=== PATIENT | female | born 1990 | race Caucasian/White ===

== ENCOUNTER 2018-04-07 21:01 | Outpatient (CLI) | payer MEDICAID ==
[2009-10-23 12:07] VITALS: BMI 31.9
[2018-04-07 21:44] LABS: APPEARANCE HAZY (CLEAR); BACTERIA MODERATE /hpf (NONE SEEN); BILIRUBIN NEGATIVE (NEGATIVE); COLOR YELLOW (YELLOW); EPITHELIAL CELLS NSEEN /hpf (0-5); GLUCOSE NEGATIVE (NEGATIVE); KETONE NEGATIVE (NEGATIVE); NITRITE NEGATIVE (NEGATIVE); PROTEIN NEGATIVE (NEGATIVE); RED CELLS - URINE 0-5 /hpf (0-5); SPECIFIC GRAVITY 1.015 (1.005-1.020); UROBILINOGEN NORMAL (NORMAL); WHITE CELLS - URINE 25-50 /hpf (0-5)
== END 2018-04-07 22:08 | disposition home or self-care (01) ==
LOC: D.LDO 21:01
PROVIDERS: Obstetrics & Gynecology
DX: O26.892 Other specified pregnancy related conditions, second trimester (principal); Z3A.20 20 weeks gestation of pregnancy; R10.9 Unspecified abdominal pain

== ENCOUNTER → 2018-05-29 12:30 | Outpatient (CLI) | payer MEDICAID ==
[2009-10-23 12:07] VITALS: BMI 31.9
[2018-05-29 13:24] LABS: APPEARANCE HAZY (CLEAR); BILIRUBIN NEGATIVE (NEGATIVE); COLOR STRAW (YELLOW); GLUCOSE NEGATIVE (NEGATIVE); KETONE NEGATIVE (NEGATIVE); NITRITE NEGATIVE (NEGATIVE); PROTEIN NEGATIVE (NEGATIVE); SPECIFIC GRAVITY 1.005 (1.005-1.020); UROBILINOGEN NORMAL (NORMAL)
[2018-05-29 13:29] LABS: BACTERIA MODERATE /hpf (NONE SEEN); EPITHELIAL CELLS 0-5 /hpf (0-5); RED CELLS - URINE RARE /hpf (0-5)
== END | disposition home or self-care (01) ==
LOC: D.LDO 12:30
PROVIDERS: Obstetrics & Gynecology
DX: O26.899 Other specified pregnancy related conditions, unspecified trimester (principal); Z3A.00 Weeks of gestation of pregnancy not specified

== ENCOUNTER → 2018-06-20 11:26 | Outpatient (CLI) | payer MEDICAID ==
[2009-10-23 12:07] VITALS: BMI 31.9
== END | disposition home or self-care (01) ==
LOC: D.US 11:26
DX: I82.401 Acute embolism and thrombosis of unspecified deep veins of right lower extremity (principal)

== ENCOUNTER → 2018-07-01 16:50 | Outpatient (CLI) | payer MEDICAID ==
[2009-10-23 12:07] VITALS: BMI 31.9
[2018-07-01 18:25] LABS: BASOPHILS 0.2 % (0-2); EOSINOPHILS 2.9 % (0-7); HEMATOCRIT 30.9 % (36.0-48.0); HEMOGLOBIN 10.5 g/dL (12-16); IMMATURE GRANULOCYTES 0.6 % (0-5); LYMPHOCYTES 25.2 % (15-50); MCH 29.8 pg (26.0-34.0); MCV 87.8 fL (80.0-100.0); MONOCYTES 9.1 % (2-11); PLATELET COUNT 220 10x3/uL (130-400); RBC 3.52 10x6/uL (4.00-5.40); WBC 10.5 10x3/uL (4.8-10.8)
[2018-07-01 18:36] LABS: APPEARANCE CLEAR (CLEAR); BILIRUBIN NEGATIVE (NEGATIVE); COLOR YELLOW (YELLOW); GLUCOSE NEGATIVE (NEGATIVE); KETONE NEGATIVE (NEGATIVE); NITRITE NEGATIVE (NEGATIVE); PROTEIN NEGATIVE (NEGATIVE); UROBILINOGEN NORMAL (NORMAL)
[2018-07-01 18:42] LABS: ALBUMIN 2.6 g/dL (3.4-5.0); ALKALINE PHOSPHATASE 93 U/L (46-116); ALT (SGPT) 17 U/L (10-68); BILIRUBIN - TOTAL 0.43 mg/dL (0.2-1.3); CALC OSMOLALITY 273 mosm/kg (275-300); CALCIUM 8.8 mg/dL (8.5-10.1); CARBON DIOXIDE 23.7 mmol/L (21.0-32.0); CHLORIDE - SERUM 105 mmol/L (98-107); CREATININE - SERUM 0.4 mg/dL (0.6-1.3); GLUCOSE 92 mg/dL (74-106); POTASSIUM - SERUM 3.3 mmol/L (3.5-5.1); PROTEIN - SERUM 6.4 g/dL (6.4-8.2); SODIUM 138 mmol/L (136-145); UREA NITROGEN 6 mg/dL (7-18); eGFR NON AFRICAN AMERICAN > 90 mL/min (90-120)
== END | disposition home or self-care (01) ==
LOC: D.LDO 16:50
PROVIDERS: Obstetrics & Gynecology
DX: O26.893 Other specified pregnancy related conditions, third trimester (principal); Z3A.32 32 weeks gestation of pregnancy

== ENCOUNTER → 2018-07-09 09:30 | Outpatient (CLI) | payer MEDICAID ==
[2009-10-23 12:07] VITALS: BMI 31.9
[~2018-07-09 09:30] MED LIST: FERROUS SULFAT325 MG PO; MOTRIN600 MG PO; OXYCODONE-APAP1 TAB PO; PRENAVITE1 TAB PO; RANITIDINE HCL150 M1 PO; VITAMIN D31000 UNI2
== END | disposition home or self-care (01) ==
LOC: D.LDO 09:30
DX: O40.3XX0 Polyhydramnios, third trimester, not applicable or unspecified (principal); Z3A.33 33 weeks gestation of pregnancy

== ENCOUNTER → 2018-07-11 09:54 | Outpatient (CLI) | payer MEDICAID ==
[2009-10-23 12:07] VITALS: BMI 31.9
== END | disposition home or self-care (01) ==
LOC: D.LDO 09:54
DX: O40.3XX0 Polyhydramnios, third trimester, not applicable or unspecified (principal); Z3A.33 33 weeks gestation of pregnancy

== ENCOUNTER → 2018-07-12 18:55 | Outpatient (CLI) | payer MEDICAID ==
[2009-10-23 12:07] VITALS: BMI 31.9
== END | disposition home or self-care (01) ==
LOC: D.LABREF 18:55 → D.LDO 18:55
DX: O26.893 Other specified pregnancy related conditions, third trimester (principal); Z3A.33 33 weeks gestation of pregnancy

== ENCOUNTER → 2018-07-17 13:32 | Outpatient (CLI) | payer MEDICAID ==
[2009-10-23 12:07] VITALS: BMI 31.9
== END | disposition home or self-care (01) ==
LOC: D.LDO 13:32
DX: O26.893 Other specified pregnancy related conditions, third trimester (principal); Z3A.34 34 weeks gestation of pregnancy

== ENCOUNTER → 2018-07-20 09:55 | Outpatient (CLI) | payer MEDICAID ==
[2009-10-23 12:07] VITALS: BMI 31.9
== END | disposition home or self-care (01) ==
LOC: D.LDO 09:55
DX: O40.3XX0 Polyhydramnios, third trimester, not applicable or unspecified (principal); Z3A.34 34 weeks gestation of pregnancy

== ENCOUNTER → 2018-07-23 11:14 | Outpatient (CLI) | payer MEDICAID ==
[2009-10-23 12:07] VITALS: BMI 31.9
== END | disposition home or self-care (01) ==
LOC: D.LDO 11:14
DX: O40.3XX0 Polyhydramnios, third trimester, not applicable or unspecified (principal); Z3A.35 35 weeks gestation of pregnancy

== ENCOUNTER → 2018-07-26 09:40 | Outpatient (CLI) | payer MEDICAID ==
[2009-10-23 12:07] VITALS: BMI 31.9
[2018-07-26 11:33] LABS: APPEARANCE CLEAR (CLEAR); COLOR YELLOW (YELLOW)
[2018-07-26 11:34] LABS: BACTERIA FEW /hpf (NONE SEEN); BILIRUBIN NEGATIVE (NEGATIVE); EPITHELIAL CELLS 0-5 /hpf (0-5); GLUCOSE NEGATIVE (NEGATIVE); KETONE NEGATIVE (NEGATIVE); NITRITE NEGATIVE (NEGATIVE); PROTEIN TRACE mg/dL (NEGATIVE); RED CELLS - URINE OCC /hpf (0-5); UROBILINOGEN NORMAL (NORMAL); WHITE CELLS - URINE OCC /hpf (0-5)
== END | disposition home or self-care (01) ==
LOC: D.LDO 09:40
PROVIDERS: Obstetrics & Gynecology
DX: O40.3XX0 Polyhydramnios, third trimester, not applicable or unspecified (principal); Z3A.35 35 weeks gestation of pregnancy

== ENCOUNTER → 2018-07-30 14:37 | Outpatient (CLI) | payer MEDICAID ==
[2009-10-23 12:07] VITALS: BMI 31.9
== END | disposition home or self-care (01) ==
LOC: D.LDO 14:37
DX: O40.3XX0 Polyhydramnios, third trimester, not applicable or unspecified (principal); Z3A.36 36 weeks gestation of pregnancy

== ENCOUNTER 2018-08-03 05:57 | Inpatient (IN) | payer MEDICAID ==
[2009-10-23 12:07] VITALS: Wt 92.5 kg
[2018-08-03] VITALS (9 sets, daily range): BP systolic 92–127; BP diastolic 50–66
--- NOTE | ~2018-08-03 | DS ---
PATIENT:ALEXIS TANG :88 MEDICAL RECORD: [id number] DISCHARGE SUMMARY ADMISSION DATE: 08/03/18 DISCHARGE DATE: 08/05/18 HOSPITAL COURSE: The patient was admitted on 08/03/2018. A 27-year-old at 37 weeks with polyhydramnios and contractions with a history of previous section times 2. The patient was noted to be A negative, group B strep negative, and rubella immune. On initial evaluation, the patient was noted to be amelia every 1-2 minutes. PAST MEDICAL HISTORY: The patient had a past medical history significant for asthma, acid reflux, and dermatitis. PAST SURGICAL HISTORY: Significant for C-sections as mentioned. MEDICATIONS: Included ranitidine, vitamins, iron, and vitamin D supplementation. FAMILY HISTORY: The patient reported no significant family history. SOCIAL HISTORY: The patient reported being a daily smoker. PHYSICAL EXAMINATION: VITAL SIGNS: On initial evaluation, vital signs were stable. The patient was afebrile and normotensive. LUNGS: Clear to auscultation. CARDIOVASCULAR: Regular rate and rhythm. PELVIC: Uterus was appropriately sized and nontender. EXTREMITIES: Lower extremities were free of erythema or swelling. LABORATORY DATA: Admit hemoglobin was found to be 10.1 and blood was placed on hold. ASSESSMENT: At that time, 1. Term intrauterine at 37 weeks. 2. Polyhydramnios. 3. History of previous section times 2. 4. Uterine contractions. 5. The patient is a smoker. PLAN: Plan to proceed with and tubal ligation. Risks and benefits were explained to the patient. The patient voiced understanding and consented. Operative report is as dictated. HOSPITAL COURSE: The patient did well overnight on postop day #0, tolerating Dilaudid FINISHER COLD ROLLING, IV fluids, a clear liquid diet. SCDs were on and functioning normally and Candelario catheter was in place overnight. Urine output was found to be adequate. On morning of postop day #1, status post repeat low transverse section, lysis of adhesions, and tubal ligation. The patient was doing well. Vital signs were stable. The patient was afebrile. The patient was advanced to a general diet and p.o. pain meds. Candelario catheter was discontinued and ambulation begun. Hemoglobin was found to be stable. The patient continued to improve DISCHARGE SUMMARY REPORT [id number] ALEXIS TANG overnight on postop day #1. The patient was discharged on the morning of postop day #2 with instructions to follow up the next week for staple removal. TRANSINT:[id number] Voice Confirmation ID: [id number] DOCUMENT ID: [id number] JEREMÍAS ORTIZ MD at 1716 CC: [id number] DICTATION DATE: 09/03/18637 CEILING INSTALLER: 09/03/18 2204 DIS IN 08/05/18 [id number] [place] [address]
--- NOTE | ~2018-08-03 | OP ---
PATIENT NAME: ALEXIS TANG MEDICAL RECORD: [id number] :88 LOC[id number] ADMISSION DATE:08/03/18 SURGEON: JEROD POWELL MD DATE OF OPERATION: 08/03/2018 PREOPERATIVE DIAGNOSES: 1. Polyhydramnios at term. 2. Contractions with history of previous section times 2. POSTOPERATIVE DIAGNOSES: 1. Polyhydramnios at term. 2. Contractions with history of previous section times 2. PROCEDURES: Repeat low transverse section, lysis of adhesions, bilateral tubal sterilization via modified Uchida procedure. SURGEON: Jerod Powell MD ANESTHESIA: Regional via spinal. INTRAVENOUS FLUIDS: Per anesthesia record. ESTIMATED BLOOD LOSS: 1000 cc. SPECIMENS: Placenta, cord for gases, and bilateral tubal segments. COMPLICATIONS: None apparent. FINDINGS: 1. Extensive adhesive disease between the uterus and rectus fascia. 2. Viable , Apgars 9 and 9. Placenta delivered manually intact, 3-vessel cord noted. 3. Normal adnexa bilaterally. PROCEDURE IN DETAIL: The patient was taken to the operating room, where regional anesthesia was achieved without any difficulty. The patient was then prepped and draped in normal sterile fashion in the dorsal supine position. A Candelario catheter had been placed and was draining freely. SCDs were on and functioning appropriately. Following prepping and drape, a repeat Pfannenstiel skin incision was made, extended down to the underlying subcutaneous fat to the level of the fascia. The fascia was then excised in the midline with a scalpel and extended bilaterally using the Padron scissors and Bovie cautery. The superior and inferior aspects of the fascial incision were then grasped with Batsheva clamps times 2, tented upward, and sharply dissected from the underlying rectus muscle using the Padron scissors and Bovie cautery. The rectus muscles were then bluntly in the midline and immediately apparent was adhesive disease involving the rectus muscle and the uterus. Careful dissection was performed using the Metzenbaum scissors until the anterior portion of the uterus was free and the bladder could be identified. At this point, a low transverse incision was made and extended superiorly and inferiorly using the Pelosi method. The 's head was delivered atraumatically, followed by the body. The infant was bulb suctioned upon delivery. The cord was clamped times 2, cut, and the was handed to the awaiting nursery team. Cord was then obtained for gases. The placenta was removed manually intact. A 3-vessel cord was noted. The uterus was exteriorized, cleared of all clots and debris and OPERATIVE REPORT [id number] ALEXIS TANG vigorously massaged until a good tone was noted. The uterine incision was repaired with 0 Vicryl in a running locked fashion times 2 with good hemostasis noted. Attention was then turned to the bilateral fallopian tubes, which because of scarring, the fimbriated ends were found to be densely adherent to the blood supply of the ovary and it was felt at that time the significant risk of oophorectomy would be caused by attempted removal of the distal ends of the fallopian tubes. Attention was then turned to the mid portion of the tube, which was grasped bilaterally using a Harvey clamp. A defect was made in the mesosalpinx and a curved Sri clamps were then placed across a portion of the fallopian tube. This was then excised and each tubal end was then oversewn with 2-0 Vicryl times 2 with good hemostasis noted. The posterior cul-de-sac was then thoroughly irrigated and uterus was replaced into the pelvis. The anterior cul-de-sac was then thoroughly irrigated. The uterine incision was found to be hemostatic. Counts were correct times 2 for sponges, needles, and instruments. The fascia was then repaired with 0 looped PDS times 1, and the skin repaired with thor. The patient tolerated the procedure well, was transferred to postanesthesia recovery stable without incident. TRANSINT:[id number] Voice Confirmation ID: [id number] DOCUMENT ID: [id number] JEROD POWELL MD at 1716 CC: [id number] DICTATION DATE: 09/03/1834 MEDICAL EDUCATION SPECIALIST: 09/03/18 0802 DIS IN 08/05/18 [facility] [address] [id number]
[~2018-08-03 05:57] MED LIST changes: -MOTRIN600 MG PO; -OXYCODONE-APAP1 TAB PO
[2018-08-03 06:54] LABS: HEMOGLOBIN 10.1 g/dL (12-16); MCH 29.1 pg (26.0-34.0); MCHC 33.7 g/dL (31.0-37.0); MCV 86.5 fL (80.0-100.0); MEAN PLATELET VOLUME 10.4 fL (7.4-10.4); RBC 3.47 10x6/uL (4.00-5.40); RDW 13.7 % (11.5-14.5)
[2018-08-03 15:02] LABS: BASOPHILS 0.1 % (0-2); EOSINOPHILS 0.3 % (0-7); HEMATOCRIT 31.3 % (36.0-48.0); HEMOGLOBIN 10.2 g/dL (12-16); IMMATURE GRANULOCYTES 0.5 % (0-5); LYMPHOCYTES 11.4 % (15-50); MCH 28.5 pg (26.0-34.0); MCHC 32.6 g/dL (31.0-37.0); MCV 87.4 fL (80.0-100.0); MONOCYTES 7.1 % (2-11); NEUTROPHILS 80.6 % (40-80); PLATELET COUNT 210 10x3/uL (130-400); RBC 3.58 10x6/uL (4.00-5.40); RDW 13.5 % (11.5-14.5); WBC 18.1 10x3/uL (4.8-10.8)
[2018-08-04 04:25] VITALS: BP 98/53
[2018-08-04 07:01] LABS: BASOPHILS 0.1 % (0-2); EOSINOPHILS 1.7 % (0-7); HEMATOCRIT 28.7 % (36.0-48.0); HEMOGLOBIN 9.3 g/dL (12-16); IMMATURE GRANULOCYTES 0.3 % (0-5); LYMPHOCYTES 12.8 % (15-50); MCH 28.4 pg (26.0-34.0); MCHC 32.4 g/dL (31.0-37.0); MCV 87.5 fL (80.0-100.0); MEAN PLATELET VOLUME 9.6 fL (7.4-10.4); MONOCYTES 7.6 % (2-11); NEUTROPHILS 77.5 % (40-80); PLATELET COUNT 216 10x3/uL (130-400); RBC 3.28 10x6/uL (4.00-5.40); RDW 13.6 % (11.5-14.5); WBC 13.9 10x3/uL (4.8-10.8)
[2018-08-04 07:31] VITALS: BP 107/55
[2018-08-04 14:30] VITALS: BP 114/47
[2018-08-04 16:56] VITALS: BP 100/52
[2018-08-04 20:33] VITALS: BP 91/55
[2018-08-04 23:52] VITALS: BP 107/59
[2018-08-05 07:45] VITALS: BP 104/60
[2018-08-05] MEDS ORDERED: MOTRIN600 MG PO (09:20)
[2018-08-05] MEDS ORDERED: OXYCODONE-APAP1 TAB PO (09:20)
[2018-08-06 03:13] LABS: RAPID PLASMA REAGIN Non Reactive (Non Reactive)
== END 2018-08-05 10:30 | disposition home or self-care (01) | DRG 785 ==
LOC: D.LD 05:57
PROVIDERS: Obstetrics & Gynecology
PROC: 10D00Z1 Extraction of Products of Conception, Low, Open Approach (ICD-10-PCS; principal; 2018-08-03 07:56)
PROC: 0UL70ZZ Occlusion of Bilateral Fallopian Tubes, Open Approach (ICD-10-PCS; 2018-08-03 07:56)
DX: O40.3XX0 Polyhydramnios, third trimester, not applicable or unspecified (principal); Z3A.37 37 weeks gestation of pregnancy; Z37.0 Single live birth; O99.334 Smoking (tobacco) complicating childbirth; K21.9 Gastro-esophageal reflux disease without esophagitis; Z30.2 Encounter for sterilization